=== PATIENT | female | born 1990 | race Caucasian/White ===

== ENCOUNTER → 2017-01-18 23:26 | Observation (INO) ==
--- NOTE | 2017-01-18 23:18 | OB/GYN Progress Note ---
Date of Encounter: 01/18/17 Time of Encounter: 23:16 - Assessment and Plan (1) 26 weeks gestation of Current Visit: Yes Status: Acute (2) Decreased movement Current Visit: Yes Status: Acute Pt now feels active movement, movement felt by CNM on palpation. No trauma noted to abdomen, no redness or bruising. tracing appropriate for gestational age. Discharged to home with instruction on when to return for evaluation. Pt and mother verbalize understanding Qualifiers: Fetus number: single or unspecified fetus Trimester: second trimester Qualified Code(s): O36.8120 - Decreased movements, second trimester, not applicable or unspecified Subjective - Subjective Interval history: 26+0 Pt states while at work was taping an box and the tape dispenser slipped and she hit herself in the abdomen with tape dispenser at 1800. Pt states she initally did not feel baby move, but currently feels a lot of movement, denies cramping, contractions, vaginal bleeding or leaking of fluid. Antepartum ROS: movement normal, no loss of fluid, no vaginal bleeding, no contractions Objective - Vital Signs Vital Signs: Intake and Output 01/18/17 01/18/17 01/18/17 07:59 15:59 23:59 Other: Weight 65.8 kg Patient Weight 01/18/17 23:59 Weight 65.8 kg - Exam FHR: auscultation normal FHR comments: Appropriate for gestational age. baseline 145 Abdomen: Present: normal appearance, soft, gravid Uterus: Present: normal
== END | disposition home or self-care (01) ==
LOC: 1NENULAB
PROVIDERS: ADMIT Advanced Practice Midwife; ATTEND Advanced Practice Midwife

== ENCOUNTER → 2017-04-08 20:45 | Observation (INO) ==
[2017-04-08 18:51] LABS: Amphetamine Screen,Urine Negative ng/mL (Cutoff=1000); Barbiturate Screen,Urine Negative ng/mL (Cutoff=200); Benzodiazepines Screen,Urine Negative ng/mL (Cutoff=200); Cannabinoid Screen,Urine Negative ng/mL (Cutoff = 50); Cocaine Screen,Urine Negative ng/mL (Cutoff= 300); Opiate Screen,Urine Negative ng/mL (Cutoff=300); Phencyclidine Screen,Urine Negative ng/mL (Cutoff=25)
[2017-04-08 19:59] LABS: Bilirubin,Urine Negative (Negative); Blood,Urine Negative (Negative); Clarity,Urine Cloudy (Clear); Color,Urine Yellow (Yellow); Glucose,Urine (UA) Normal (Normal); Ketones,Urine Negative (Negative); Leukocyte Esterase,Urine Negative (Negative); Nitrite,Urine Negative (Negative); Protein,Urine Negative (Neg-Trace); Specific Gravity,Urine > 1.030 (1.010-1.025); Urobilinogen,Urine Normal (Normal)
[2017-04-08 20:03] LABS: Hyaline Casts,Urine None Seen per lpf (None-Few); RBC,Urine 0-3 per hpf (0-3); Squamous Epithelial Cell,Urine Many per lpf (None-Few); WBC,Urine 0-3 per hpf (0-3)
[2017-04-08 20:12] LABS: Bacteria,Urine Few per hpf (None-Few); Mucus,Urine Few (Few)
--- NOTE | 2017-04-08 20:20 | OB/GYN Progress Note ---
Date of Encounter: 04/08/17 Time of Encounter: 20:19 - Assessment and Plan (1) 38 weeks gestation of Current Visit: Yes Status: Acute 26 y/o @ 38 weeks presented as a labor eval, cervix checked x 2 and 1cm, FHT CAT 1, ok for discharge Objective - Vital Signs Vital Signs: Intake and Output 04/08/17 04/08/17 04/08/17 07:59 15:59 23:59 Other: Weight 68.7 kg Patient Weight 04/08/17 23:59 Weight 68.7 kg - Labs Labs: Abnormal lab results Urine Clarity Cloudy (Clear) A 04/08/17 19:40 Ur Specific [place] > 1.030 (1.010-1.025) H 04/08/17 19:40 Ur Squamous Epith Cells Many per lpf (None-Few) H 04/08/17 19:40
== END | disposition home or self-care (01) ==
LOC: 1NENULAB
PROVIDERS: ADMIT Student in an Organized Health Care Education/Training Program; ATTEND Student in an Organized Health Care Education/Training Program

== ENCOUNTER 2017-04-27 22:31 | Inpatient (IN) ==
[2017-04-27 22:13] LABS: Basophils # 0.1 K/mcL (0.0-0.2); Basophils % 0.4 %; Eosinophils # 0.2 K/mcL (0.0-0.6); Eosinophils % 1.1 %; Hematocrit 33.3 % (35.3-44.9); Hemoglobin 10.8 g/dL (11.5-15.4); Immature Granulocytes % 0.5 % (0-4); Lymphocytes # 2.7 K/mcL (0.6-4.6); Lymphocytes % 20.6 %; Mean Corpuscular HGB Conc 32.4 g/dL (31.6-35.5); Mean Platelet Volume 11.4 fL (9.4-12.4); Monocytes % 7.7 %; Neutrophils # 9.2 K/mcL (1.6-8.9); Platelet Count 251 K/mcL (140-400); Red Blood Count 4.16 M/mcL (3.82-4.97); Red Cell Distribution Width 14.2 % (11.5-14.5); Segmented Neutrophils % 69.7 %
[2017-04-27 22:23] LABS: Amphetamine Screen,Urine Negative ng/mL (Cutoff=1000); Barbiturate Screen,Urine Negative ng/mL (Cutoff=200); Benzodiazepines Screen,Urine Negative ng/mL (Cutoff=200); Cannabinoid Screen,Urine Negative ng/mL (Cutoff = 50); Cocaine Screen,Urine Negative ng/mL (Cutoff= 300); Opiate Screen,Urine Negative ng/mL (Cutoff=300); Phencyclidine Screen,Urine Negative ng/mL (Cutoff=25)
[~2017-04-27 22:31] MED LIST: Famotidine 20 MG/2 ML VIAL IVP PRN; Metoclopramide 10 MG/2 ML VIAL IVP PRN; Naloxone 0.4 MG/ML INJ IVP PRN; Ondansetron 4 MG/2 ML VIAL IVP PRN; Ringers Solution, Lactated 1,000 ML IVC SCH
--- NOTE | 2017-04-27 22:42 | OB/GYN History & Physical ---
Date of Encounter: 04/27/17 Time of Encounter: 22:20 Assessment and Plan (1) 40 weeks gestation of Current visit: Yes Status: Acute (2) Uterine contractions Current visit: Yes Status: Acute Patient will be admitted to labor and delivery. - IV fluids. - Nubain PRN for pain. - Clear liquid diet - Epidural as desired Expectant management at this time. Anticipate History of Present Illness Chief complaint: Labor evaluation HPI: Ms. Carr is a 26 year old female at 40 5/7 weeks gestation that presents for labor evaluation. Patient admits that she has been having contractions that are 2-4 minutes apart since 5 pm earlier today. She admits to good movement. She denies any vaginal fluid leakage, but admits to some minor vaginal bleeding (spotting) earlier today. She denies any headaches, vision changes, nausea, vomiting, chest pain, fever, chills, dysuria, or diarrhea. GBS: negative HepBSAg: non-reactive (10/13/16) HIV Ag/Ab: non-reactive Rubella Ab: positive Varicella Ab: positive Blood Type: O- Past Med Surg Social Fam HX - Past Medical History Medical history: asthma Psychiatric history: no psych history - Past Surgical History Surgical History: no surgical history - Social History Smoking Status: Never smoker Smokeless Tobacco Status: No Alcohol use: none Drug use: none - Family History Mother Living Status: Still Living Hx Family Cardiac Disorders: No Hx Family Respiratory Disorders: No Hx Family Cancer: No Hx Family GI Disorders: No Hx Family Endocrine Disorder: No Hx Family Neuromuscular Disorders: No Hx Family Neurologic Disorders: No Hx Family HEENT Disorders: No Hx Family Autoimmune Disorders: Yes (chrohns) Obstetrical History - Pregnancies : 1 Para: 0 Term: 0 : 0 Ab's: 0 Livin Medications and Allergies Vit No.124/Iron/FA [ Vitamin Tablet] 1 each PO DAILY #90 tablet 09/04/16 [Rx] Albuterol Sulfate [Albuterol Inhaler] 2 puff IH Q4HR PRN #1 hfa.aer.ad 12/11/16 [Rx] 3 Allergy/AdvReac Type Severity Reaction Status Date / Time No Known Allergies Allergy Verified 04/27/17 21:56 Exam - Vital Signs Vital signs: BP: 113/74 HR: 85 FHR: 147 [place]: 39 - Constitutional Constitutional: well developed, well nourished, no acute distress, average body habitus - Neck Neck exam: full ROM - Lungs Respiratory exam: CTAB - Cardiovascular Cardiovascular exam: RRR, +S1, +S2 - Abdomen Abdomen: Present: bowel sounds normal, gravid Abdomen detail: right lower quadrant: tenderness (Minor tenderness with palpation), left upper quadrant: tenderness - Extremities Extremities exam: full ROM, normal capillary refill, normal inspection, radial pulses palpable and symmetrical Deep Tendon Reflex Grade: 2+ Normal - Vagina Vagina: Present: normal moisture - Cervix Dilation: 3 Effacement: 80 Station: 0 - Uterus Uterus exam: Present: normal size, normal contour - Anus/Rectum Anus/Rectum: Present: normal perianal skin Results Result Diagrams: 04/27/17 22:04 Abnormal lab results WBC 13.2 K/mcL (4.3-11.1) H 04/27/17 22:04 Hgb 10.8 g/dL (11.5-15.4) L 04/27/17 22:04 Hct 33.3 % (35.3-44.9) L 04/27/17 22:04 MCV 80.0 fL (83.0-100.0) L 04/27/17 22:04 MCH 26.0 pg (28.0-33.3) L 04/27/17 22:04 Neutrophils # 9.2 K/mcL (1.6-8.9) H 04/27/17 22:04 All other labs normal. - VTE Reasons for not Prescribing Prophylaxis: Treatment not Indicated - Low risk for VTE
[2017-04-27] MEDS: *HR* Nalbuphine 20 MG/ML AMPUL IVP PRN (22:57)
--- NOTE | 2017-04-28 00:27 | OB Labor Progress Note ---
Date of Encounter: 04/28/17 Time of Encounter: 00:25 Labor Progress Note - Subjective Subjective: Pt states nubain has helped resting comfortably. - Vital Signs Vital Signs: VSS - Heart Tones Heart Tones: 120/moderate/+accels/-decels - [place]: 3-6 - Plan Plan: Continue expectant management. Epidural as desires GBS negative. Antiicpate
[2017-04-28] MEDS: *HR* Nalbuphine 20 MG/ML AMPUL IVP PRN (04:28)
[2017-04-28] MEDS ORDERED: Oxytocin 20 units/ LR 1000 mL 20 UNIT/1,000 ML BAG IVC SCH (07:15)
[2017-04-28] MEDS ORDERED: Epidural Premix (fent/bupiv) 110 ML EP ONE ×3 (09:28→19:43)
--- NOTE | 2017-04-28 10:04 | Anesthesia Evaluation PreOp ---
Date of Encounter: 04/28/17 Time of Encounter: 10:03 - Past History Planned Operation: ANNE Cardiac History: Denies any Significant Hx Pulmonary History: Asthma FUR NAILER History: Denies Any Significant HX Other Medical History: Denies Any Significant HX Anesthesia History: No Prior Anesthetic Complications Alcohol Use: none Drug use: none Medications and Allergies Vit No.124/Iron/FA [ Vitamin Tablet] 1 each PO DAILY #90 tablet 09/04/16 [Rx] Albuterol Sulfate [Albuterol Inhaler] 2 puff IH Q4HR PRN #1 hfa.aer.ad 12/11/16 [Rx] 3 Allergy/AdvReac Type Severity Reaction Status Date / Time No Known Allergies Allergy Verified 04/27/17 21:56 - Meds/Allergy Pre-op Review Medications Reviewed: Yes Allergies Reviewed: Yes Beta Blockers on Current Med List: No Anesthesia Results - Labs 04/27/17 22:04 Anesthesia Exam Height: 1.6m Weight: 68.5kg NPO (# of Hours): 6 Pain Scale: 8 Pain Scale Used: Numeric (1 - 10) - HEENT Pupil (Motor): Pupils equal Mallampati: II Teeth: Normal Oral Opening: Greater than 3 - FUR NAILER LOC: Oriented FUR NAILER Motor: Normal RUE, Normal LUE, Normal RLE, Normal LLE, Normal Face FUR NAILER Sensory: Normal: RUE, LUE, RLE, LLE, Face - Cardiac Rhythm: Regular Murmur: None JVD: No Carotid Bruit: No - Pulmonary Breath Sounds: bilateral Clear Respiratory Effort: Symmetrical Anesthesia Assess/Plan ASA Score: 2 Modified Jl Scale for Level of Consciousness: Cooperative, oriented, and tranquil Anesthetic Plan: General (plan b), Regional (plan a) Autologous Blood: Yes Monitoring Plan: Standard Monitors
--- NOTE | 2017-04-28 10:06 | Anesthesia Procedures ---
Date of Encounter: 04/28/17 Time of Encounter: 10:04 Procedures: Anesthesia - Epidural/Spinal Patient ID/Chart reviewed: Yes Patient examined: Yes OB Eval: Gestational age: 40.5 OB Eval: : 1 OB Eval: Hx Para: 0 OB Eval: Dilated at (cm): 4 OB Eval: Contractions: Non-stressed pattern Consent Obtained: Yes Supplemental Oxygen: None/Room Air Site Prep: Aseptic Technique, Sterile prep and drape, Povidone-Iodine 1% Patient position: upright Local Anesthetic: Lidocaine 1% Amount of Local Anesthetic used: 3 Touhy Needle Gauge: 18 Touhy Needle Depth (cm): 6 Catheter Depth at Skin (cm): 19 Test Dose (1.5% Lido + Epi): Volume given (mls): 5 Test Dose Result: Negative Loading Dose: Other: 10mls of epidural pharm bag premix solution Loading Dose Administered: Thru Catheter Infusion Med: 0.125% Bupivacaine w/ 2 mcg/ml Fentanyl Infusion Rate (mls/hr): 12 ([id number]) Catheter Secured in Place: Tegaderm, Tape Interspace Used: L3-L4 Loss of Resistance (BARTOLO): Yes Blood: No CSF: No Paresthesia: No Procedure: pt tolerated procedure well. no complications. vss. fhr stable. 112/57 hr 84 116/58 hr 85 fhr 134
--- NOTE | 2017-04-28 11:54 | OB Labor Progress Note ---
Date of Encounter: 04/28/17 Time of Encounter: 11:52 Labor Progress Note - Subjective Subjective: Patient continues to be comfortable after her epidural - Cervix Cervix: 6/95/-2 vertex - Heart Tones Heart Tones: 148, category 1, early decels with contractions - [place]: q 1.5-2 minutes - Interventions Interventions: AROM with clear fluid. Scalp stim with exam noted - Plan Plan: Continue pitocin augmentation
[2017-04-28] MEDS ORDERED: Acetaminophen 325 MG TABLET PO PRN (21:03)
[2017-04-28] MEDS ORDERED: CeFAZolin Premix DUPLEX 2,000 MG/50 ML BAG IVPB SCH (21:30)
[2017-04-29] MEDS ORDERED: *HR* Oxytocin 10 UNIT/ML VIAL IM ONE (00:08)
[2017-04-29] MEDS ORDERED: Chloroprocaine/PF 20 ML VIAL INFILT ONE (00:08)
--- NOTE | 2017-04-29 00:10 | OB Labor Progress Note ---
Date of Encounter: 04/28/17 Time of Encounter: 23:55 Labor Progress Note - Subjective Subjective: Patient comfortable and denies complaints - Cervix Cervix: c/c/+1 - Heart Tones Heart Tones: baseline 180, category II - [place]: q 2-3 minutes - Plan Plan: Spoke with patient and family at bedside. Category II FHR tracing and having decels with pushing remote from delivery recommendation to proceed with primary section due to these indications. Patient in agreement. Informed consent obtained.
[2017-04-29] MEDS ORDERED: Ringers Solution, Lactated 1,000 ML ONE (00:38)
[2017-04-29] MEDS ORDERED: Ondansetron 4 MG/2 ML VIAL ONE ×2 (00:38→01:12)
[2017-04-29] MEDS ORDERED: EPHEDrine 50 MG/ML VIAL ONE (00:39)
[2017-04-29] MEDS ORDERED: *HR* Morphine Sulfate/PF 5 MG/10 ML AMPUL ONE (00:40)
[2017-04-29] MEDS ORDERED: *HR* HYDROmorphone (PF) 1 MG/ML SYRINGE IVP PRN ×3 (00:46→07:20)
--- NOTE | 2017-04-29 01:13 | OB/GYN Procedure Note ---
Section - Date of procedure: 04/29/17 Preop diagnosis: category 2 FHT tracing Post-op diagnosis: same Procedure: section, primary low transverse Surgeon: Zenobia Enriquez Estimated blood loss (cc): 500 Gravity Prospector: Praveen Banks Anesthesia Type: Epidural section complications: none Disposition: L&D Recovery Room Specimens: Placenta, Cord blood, Cord gasses - Infant (s) Infant A Infant Delivery Date: 04/29/17 Infant Delivery Time: 00:27 Presentation: vertex Gender: Female Viability: Viable Pounds: 8 Ounces: 4 Gram Weight: 3.74 kg at 1 minute: 9 at 5 minutes: 9 Specimens collected: cord blood, venous cord gases, arterial cord gases Placenta: spontaneous Cord: 3 umbilical vessels - Narrative Narrative: Patient was taken to the operative suite and placed under spinal anesthetic. She was then prepped and draped in normal sterile fashion in the dorsal supine position. Timeout was then performed. Antibiotics were given at room time. SCDs are on and active. Pfannenstiel skin incision is then made and carried through to underlying layer of fascia with the Bovie. The fascia was then incised in the midline and incision extended laterally with the Almodovar scissors. The fascia was tented up and dissected off the rectus muscles sharply. The rectus muscles were in the midline and the peritoneum was tented up and entered sharply with the Metzenbaum scissors. The peritoneal incision was then extended bluntly. The bladder blade was then inserted. A low transverse uterine incision was then made. The vertex was brought to the incision and the infant was delivered using fundal pressure. There was no nuchal cord. Cord was clamped and cut. was handed to waiting nursery staff. Placenta delivered spontaneously complete and intact with a three-vessel cord. The uterus was cleared of all clots and debris using moist laparotomy sponge. The uterine incision was then closed using 0 Vicryl in a running locked fashion. A second layer of the same suture was used to obtain excellent hemostasis. The abdomen was then cleared of all clots and debris using copious irrigation. Hematuria was noted in the salamanca catheter. The bladder was retrograde filled with sterile water and methylene blue, 250 ml was instilled with no spillage in the abdomen. The bladder was then drained. A piece of Intercede was then placed over the uterine incision and the anterior uterine serosa. The fascial incision was then closed using 0 Vicryl in a running fashion. The skin was closed using 4-0 Vicryl in a subcuticular fashion. Steri- Strips and sterile dressing are then placed. Mother and taken to recovery in stable condition.
[2017-04-29] MEDS ORDERED: *HR* Morphine 2 MG/ML SYRINGE IVP PRN ×2 (01:24→07:20)
--- NOTE | 2017-04-29 07:17 | Anesthesia Evaluation Post Op ---
Date of Encounter: 04/29/17 Time of Encounter: 07:14 - Vital Signs Vital Signs: vss - Lungs Lungs: Clear Ascult./Percussion - Airway Airway: Non-obstructed - Mental Status Mental Status: Alert & Oriented, Answers Appropriately - Pain Pain Scale used: Uziel (Faces) - Nausea Vomiting Nausea Vomiting: Not Present - Hydration Hydration: Ice chips (just starting clears.)
[2017-04-29] MEDS ORDERED: Simethicone 80 MG TAB.CHEW PO PRN (07:20)
[2017-04-29] MEDS ORDERED: Acetaminophen 325 MG TABLET PO PRN (07:20)
[2017-04-29] MEDS ORDERED: Metoclopramide 10 MG/2 ML VIAL IVP PRN (07:20)
[2017-04-29] MEDS ORDERED: Rho Immune Globulin 1,500 UNIT SYRINGE IM ONE (07:20)
[2017-04-29] MEDS ORDERED: Ondansetron 4 MG/2 ML VIAL IVP PRN (07:20)
[2017-04-29] MEDS ORDERED: Oxytocin 20 units/ LR 1000 mL 20 UNIT/1,000 ML BAG IVC SCH (07:20)
[2017-04-29] MEDS: Ibuprofen 600 MG TABLET PO PRN ×2 (10:42→17:02)
[2017-04-29] MEDS: metroNIDAZOLE 500 MG TABLET PO SCH ×2 (12:46→19:56)
[2017-04-29] MEDS: cephALEXin 500 MG CAPSULE PO SCH ×3 (12:46→19:55)
[2017-04-29] MEDS: Prenatal Vit/FA 1 EACH TABLET PO SCH (12:46)
[2017-04-29] MEDS: *HR* OxyCODONE/APAP 5/325 TABLET PO PRN (23:25)
--- NOTE | 2017-04-30 07:21 | OB/GYN Progress Note ---
Date of Encounter: 04/30/17 Time of Encounter: 07:05 - Assessment and Plan (1) 40 weeks gestation of Current Visit: Yes Status: Acute (2) delivery delivered Current Visit: Yes Status: Acute Patient's pain is well-controlled. Vaginal bleeding is minimal per nurse. Hgb stable at 10.8. - Continue current pain meds. - Continue iron supplement. - Continue keflex. - Continue PN vitamins. (3) Constipation Current Visit: Yes Status: Acute Has not been able to to have a BM or pass gas yet. Normoactive bowel sounds x 4 on exam. - Continue Senna. Qualifiers: Constipation type: unspecified constipation type Qualified Code(s): K59.00 - Constipation, unspecified Subjective - Subjective Principal diagnosis: S/P Interval history: Patient says that she is doing well. She is currently breast feeding her baby and the baby is doing well. She says her abdominal pain level is at a 1-2/10. She is unsure about the status of her vaginal bleeding. She has not had a bowel movement or able to pas gas yet. She denies any fever, chills, nausea, vomiting , headaches, vision changes, chest pain, or shortness of breath. Patient reports: appetite normal, voiding normally, pain well controlled, ambulating normally : doing well, nursing well Objective - Vital Signs Latest vital signs: Vital Signs Temp Pulse Resp BP Pulse Ox 04/29/17 23:00 98.2 F 110 16 102/67 97 04/29/17 19:45 99.1 F 108 14 92/60 98 04/29/17 16:00 98.4 F 105 16 93/60 98 04/29/17 14:07 98.4 F 99 18 99/64 99 04/29/17 11:30 100.2 F H 111 16 100/62 99 04/29/17 07:30 99.0 F 92 16 97/63 Intake and Output 04/29/17 04/29/17 04/30/17 15:59 23:59 07:59 Intake Total 740 / 740 1420 / 1420 Output Total 750 / 750 450 / 450 500 / 500 Balance -10 / -10 970 / 970 -500 / -500 Intake: IV Fluids 1000 / 1000 Pitocin 20 unit In 1,000 ml @ 1000 / 1000 125 mls/hr IVC .Q8H [facility] Rx#: [id number] Oral 740 / 740 420 / 420 Output: Urine 250 / 250 500 / 500 Catheter 750 / 750 200 / 200 Other: Meal Breakfast Dinner Percent of Meal Consumed 50% 50% - Exam Lungs: bilateral: normal Chest: Normal S1, Normal S2 Extremities: Present: normal. Absent: tenderness, edema Abdomen: Present: normal appearance, soft, tenderness (Diffuse tenderness) Incision: Present: normal, dry, dressed Uterus: Present: normal, firm Comments: Neuro: +2 DTRs in upper and lower extremities bilaterally. - Labs Labs: Laboratory Results - last 24 hr 04/29/17 01:58 Screen NEGATIVE Baby's Blood Type O RH POSITIVE Mother's Blood Type O RH NEGATIVE Rhogam Indicated YES Rhogam Req for Mother 1
[2017-04-30] MEDS: cephALEXin 500 MG CAPSULE PO SCH ×3 (09:01→20:44)
[2017-04-30] MEDS: Ibuprofen 600 MG TABLET PO PRN (09:02)
[2017-04-30] MEDS: metroNIDAZOLE 500 MG TABLET PO SCH ×2 (09:02→20:44)
[2017-04-30] MEDS: Prenatal Vit/FA 1 EACH TABLET PO SCH (09:03)
[2017-04-30] MEDS: *HR* OxyCODONE/APAP 5/325 TABLET PO PRN (15:49)
[2017-05-01] MEDS: *HR* OxyCODONE/APAP 5/325 TABLET PO PRN ×4 (02:11→23:19)
--- NOTE | 2017-05-01 08:04 | Discharge Summary ---
Date of Encounter: 05/01/17 Time of Encounter: 07:20 - Discharge Diagnosis (1) 40 weeks gestation of Priority: Primary Status: Resolved (2) delivery delivered Priority: Primary Status: Resolved (3) Constipation Priority: Primary Status: Acute Qualifiers: Constipation type: unspecified constipation type Qualified Code(s): K59.00 - Constipation, unspecified - Discharge Medications Prescriptions: Ibuprofen [Motrin] 600 mg PO Q6HR PRN #60 tablet PRN Reason: Cramping OxyCODONE/APAP 5/325 [Percocet 5/325 MG] 1 each PO Q6HR PRN #20 tablet PRN Reason: Moderate pain 4-6 cephALEXin [Keflex] 500 mg PO TID #15 capsule Docusate [Colace] 100 mg PO BID #30 capsule metroNIDAZOLE [Flagyl] 500 mg PO BID #10 tablet Home Medications: Vit No.124/Iron/FA [ Vitamin Tablet] 1 each PO DAILY #90 tablet 09/04/16 [Rx] Albuterol Sulfate [Albuterol Inhaler] 2 puff IH Q4HR PRN #1 hfa.aer.ad 12/11/16 [Rx] Docusate [Colace] 100 mg PO BID #30 capsule 05/01/17 [Rx] Ibuprofen [Motrin] 600 mg PO Q6HR PRN #60 tablet 05/01/17 [Rx] OxyCODONE/APAP 5/325 [Percocet 5/325 MG] 1 each PO Q6HR PRN #20 tablet 05/01/17 [Rx] cephALEXin [Keflex] 500 mg PO TID #15 capsule 05/01/17 [Rx] metroNIDAZOLE [Flagyl] 500 mg PO BID #10 tablet 05/01/17 [Rx] Allergies/Adverse Reactions: 3 Allergy/AdvReac Type Severity Reaction Status Date / Time No Known Allergies Allergy Verified 04/27/17 21:56 Data Procedures and tests throughout hospitalization: Laboratory Tests 04/27/17 04/27/17 04/29/17 22:04 22:04 01:58 WBC 13.2 H RBC 4.16 Hgb 10.8 L Hct 33.3 L MCV 80.0 L MCH 26.0 L MCHC 32.4 RDW 14.2 Plt Count 251 MPV 11.4 Immature Gran % 0.5 Seg Neutrophils % 69.7 Lymphocytes % 20.6 Monocytes % 7.7 Eosinophils % 1.1 Basophils % 0.4 Neutrophils # 9.2 H Lymphocytes # 2.7 Monocytes # 1.0 Eosinophils # 0.2 Basophils # 0.1 Urine Opiates Screen Negative Ur Barbiturates Screen Negative Ur Phencyclidine Scrn Negative Ur Amphetamines Screen Negative U Benzodiazepines Scrn Negative Urine Cocaine Screen Negative U Marijuana (THC) Screen Negative Screen NEGATIVE Baby's Blood Type O RH POSITIVE Mother's Blood Type O RH NEGATIVE Rhogam Indicated YES Rhogam Req for Mother 1 Date of admission: 04/27/17 22:33 Primary care physician: PCP NONE Discharging clinician: Ok Jack Anticipated date of discharge: 05/01/17 - Patient Status Disposition: Home, Self-Care Condition: Good Functional capacity at discharge: independent ambulation Overall status at discharge: patient is progressing back to baseline - Discharge Instructions - Diet and Activity Activity: resume usual activities as tolerated Diet: regular diet Hospital Course Reason for admission: IUP at term Delivery: section Episiotomy: none Laceration: none Other procedures: none complications: none Discharge diagnosis: IUP at term delivered [place] baby: female Hospital course: Ms. Carr is a 26 year old female that presented at 40 5/7 weeks gestation for labor evaluation. Patient admitted that she had been having contractions that were 2-4 minutes apart since 5 pm earlier today. She admitted to good movement. She denied any vaginal fluid leakage, but admitted to some minor vaginal bleeding (spotting) earlier. Patient was taken to the operative suite and placed under spinal anesthetic. She was then prepped and draped in normal sterile fashion in the dorsal supine position. Timeout was then performed. Antibiotics were given at room time. SCDs are on and active. Pfannenstiel skin incision is then made and carried through to underlying layer of fascia with the Bovie. The fascia was then incised in the midline and incision extended laterally with the Almodovar scissors. The fascia was tented up and dissected off the rectus muscles sharply. The rectus muscles were in the midline and the peritoneum was tented up and entered sharply with the Metzenbaum scissors. The peritoneal incision was then extended bluntly. The bladder blade was then inserted. A low transverse uterine incision was then made. The infant vertex was brought to the incision and the was delivered using fundal pressure. There was no nuchal cord. Cord was clamped and cut. Infant was handed to waiting nursery staff. Placenta delivered spontaneously complete and intact with a three-vessel cord. The uterus was cleared of all clots and debris using moist laparotomy sponge. The uterine incision was then closed using 0 Vicryl in a running locked fashion. A second layer of the same suture was used to obtain excellent hemostasis. The abdomen was then cleared of all clots and debris using copious irrigation. Hematuria was noted in the salamanca catheter. The bladder was retrograde filled with sterile water and methylene blue, 250 ml was instilled with no spillage in the abdomen. The bladder was then drained. A piece of Intercede was then placed over the uterine incision and the anterior uterine serosa. The fascial incision was then closed using 0 Vicryl in a running fashion. The skin was closed using 4-0 Vicryl in a subcuticular fashion. Steri- Strips and sterile dressing are then placed. When seen today, patient says that she is in good mood. She has been breast and bottle feeding her baby. She says her baby has been doing OK, but is concerned about the weight loss of the . 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 She has not had a bowel movement or passed gas yet today. She admits that her appetite has been poor and she has been nauseous. She has been able to void and ambulate. Her vaginal bleeding has been light. She rates her intermitted abdominal cramps as a 2-3/10 on the pain scale. She denies any headaches, fever, chills, chest pain, or shortness of breath. Patient will be given senna for her constipation and will be discharged once she has been able to pass gas. She will continue her course of flagyl and keflex for 5 more days for a total of 7 days of antibiotic prophylactic treatment. She has a follow- up appointment with Dr. Enriquez on 05/15/17. Section - Date of procedure: 04/29/17 Preop diagnosis: category 2 FHT tracing Post-op diagnosis: same Procedure: section, primary low transverse Surgeon: Zenobia Enriquez Estimated blood loss (cc): 500 Group Account Director: Praveen Banks Anesthesia Type: Epidural section complications: none Disposition: L&D Recovery Room Specimens: Placenta, Cord blood, Cord gasses - (s) Infant A Infant Delivery Date: 04/29/17 Infant Delivery Time: 00:27 Presentation: vertex Gender: Female Viability: Viable Pounds: 8 Ounces: 4 Gram Weight: 3.74 kg at 1 minute: 9 at 5 minutes: 9 Specimens collected: cord blood, venous cord gases, arterial cord gases Placenta: spontaneous Cord: 3 umbilical vessels Time Attestation: Total time spent providing and/or coordinating discharge services: Time Spent: Less than 30 minutes - VTE Reasons for not Prescribing Prophylaxis: Treatment not Indicated - Low risk for VTE Documentation of Mechanical Device: Intermittent pneumatic compression device - Attending Attestation I examined this patient and my medical decision-making was reviewed with the Resident Physician. I agree with the documented findings, disposition and treatment plan as described. Sarah Jeffery CNM Exam - Constitutional Vitals: Temp Pulse Resp BP Pulse Ox 98.2 F 103 14 108/66 99 04/30/17 20:45 04/30/17 20:45 04/30/17 20:45 04/30/17 20:45 04/30/17 20:45 General appearance IM: A&O X 3, pleasant, no acute distress, answers questions appropriately - Respiratory Respiratory exam: Present: CTAB - Cardiovascular Cardiovascular exam IM: Present: RRR, +S1, +S2 - GI/Abdominal GI/Abdominal exam IM: normal bowel sounds (Normoactive bowel sounds x 4 quadrants. ), soft, tenderness Incision: dry, dressed - Uterine Tone: Firm - Extremities Exam Extremities exam IM: Present: full ROM, normal capillary refill, normal inspection, radial pulses palpable and symmetrical. Absent: pedal edema Additional comments: Pedal pulses intact and symmetrical bilaterally. - Neurological Exam Neurological exam: reflexes normal
[2017-05-01] MEDS: Sennosides 8.6 MG TABLET PO PRN (09:04)
[2017-05-01] MEDS: cephALEXin 500 MG CAPSULE PO SCH ×3 (09:04→20:17)
[2017-05-01] MEDS: Prenatal Vit/FA 1 EACH TABLET PO SCH (09:04)
[2017-05-01] MEDS: metroNIDAZOLE 500 MG TABLET PO SCH ×2 (09:04→20:17)
[2017-05-01] MEDS ORDERED: Ondansetron ODT 4 MG TAB.RAPDIS SL ONE (14:42)
[2017-05-01] MEDS: Ibuprofen 600 MG TABLET PO PRN (20:17)
[2017-05-01] MEDS ORDERED: Metoclopramide 10 MG/2 ML VIAL IVP ONE (21:47)
--- NOTE | 2017-05-01 21:52 | Event Note ---
Date of Encounter: 05/01/17 Time of Encounter: 21:48 Patient re-evaluated due to c/o no passing of flatus today and declining discharge. Bowel sounds hypoactive, abdomen soft, tender with palpation, incision C/D/I steri-strips present. Patient c/o nausea after eating. States is able to drink without difficulty. Denies passing flatus today. Discussed POC with Dr Cam. Reglan po, clear liquids only, encouraged ambulation in [place] and self-care. ( Patient received a bed bath today) Will D/C discharge tonight and re-evaluate for discharge in AM.
[2017-05-02] MEDS: Ibuprofen 600 MG TABLET PO PRN ×2 (05:04→12:02)
[2017-05-02] MEDS ORDERED: MOM Conc 10 ML UD.LIQ PO ONE (06:47)
[2017-05-02] MEDS: Sennosides 8.6 MG TABLET PO PRN (06:59)
[2017-05-02 08:08] VITALS: BP 100/65
[2017-05-02] MEDS: Prenatal Vit/FA 1 EACH TABLET PO SCH (09:00)
[2017-05-02] MEDS: metroNIDAZOLE 500 MG TABLET PO SCH (09:00)
[2017-05-02] MEDS: cephALEXin 500 MG CAPSULE PO SCH (09:00)
--- NOTE | 2017-05-02 09:08 | OB/GYN Progress Note ---
Date of Encounter: 05/02/17 Time of Encounter: 07:15 - Assessment and Plan (1) 40 weeks gestation of Current Visit: Yes Status: Resolved (2) delivery delivered Current Visit: Yes Status: Resolved Patient's pain is well-controlled. Vaginal bleeding has slightly increased per patient. - Continue current pain meds. - Continue iron supplement. - Continue keflex. Day#4 - Conitnue metronidazole Day #4 - Continue PN vitamins. Ambulation q 2 hours for 15 minutes will discharge when passing flatus (3) Constipation Current Visit: Yes Status: Acute Has not been able to to have a BM or pass gas yet. Hypoactive bowel sounds x 4 on exam. - Milk of magnesia. - Ambulation. Qualifiers: Constipation type: unspecified constipation type Qualified Code(s): K59.00 - Constipation, unspecified Subjective - Subjective Principal diagnosis: S/P Interval history: POD#4. When seen today, patient says that she still has not been able to have a bowel movement or pass gas. She has been able to void. She says her appetite has been poor and she has not been able to eat due to nausea. She denies any vomiting. She also says that her vaginal bleeding has increased a bit more today. She rates her abdominal cramps as a 5-6/10 at it's worst when she is moving. She reports a good mood. Her baby is doing well and she has been breast and bottle feeding. Patient reports: voiding normally, pain well controlled, appetite poor, ambulating normally, nauseated Davis: doing well, nursing well, bottle feeding Objective - Vital Signs Latest vital signs: Vital Signs Temp Pulse Resp BP Pulse Ox 05/02/17 08:00 98 F 68 12 100/65 98 05/01/17 20:30 98.7 F 77 14 104/64 96 Intake and Output 05/01/17 05/02/17 05/02/17 23:59 07:59 15:59 Intake Total 900 / 900 Balance 900 / 900 Intake: Oral 900 / 900 Other: # Voids 2 1 Weight 68.492 kg Patient Weight 05/02/17 23:59 Weight 68.492 kg - Exam Lungs: bilateral: normal Chest: Normal S1, Normal S2 Extremities: Present: normal. Absent: tenderness, edema Abdomen: Present: normal appearance, soft, tenderness (Diffuse tenderness. ) Incision: Present: dry, dressed Uterus: Present: firm Comments: fundus at U
--- NOTE | 2017-05-02 12:11 | Discharge Summary ---
Date of Encounter: 05/02/17 Time of Encounter: 12:08 - Discharge Diagnosis (1) 40 weeks gestation of Priority: Primary Status: Resolved (2) delivery delivered Priority: Primary Status: Resolved Comments: POD#3. Pt states pain is managed on po pain medication, tolerate po diet. Passed flatus today after ambulation. . Will discharge home. (3) Constipation Priority: Secondary Status: Acute Comments: Has now passed flatus will discharge Qualifiers: Constipation type: unspecified constipation type Qualified Code(s): K59.00 - Constipation, unspecified - Discharge Medications Prescriptions: Ibuprofen [Motrin] 600 mg PO Q6HR PRN #60 tablet PRN Reason: Cramping OxyCODONE/APAP 5/325 [Percocet 5/325 MG] 1 each PO Q6HR PRN #20 tablet PRN Reason: Moderate pain 4-6 cephALEXin [Keflex] 500 mg PO TID #15 capsule Docusate [Colace] 100 mg PO BID #30 capsule metroNIDAZOLE [Flagyl] 500 mg PO BID #10 tablet Home Medications: Vit No.124/Iron/FA [ Vitamin Tablet] 1 each PO DAILY #90 tablet 09/04/16 [Rx] Albuterol Sulfate [Albuterol Inhaler] 2 puff IH Q4HR PRN #1 hfa.aer.ad 12/11/16 [Rx] Docusate [Colace] 100 mg PO BID #30 capsule 05/01/17 [Rx] Ibuprofen [Motrin] 600 mg PO Q6HR PRN #60 tablet 05/01/17 [Rx] OxyCODONE/APAP 5/325 [Percocet 5/325 MG] 1 each PO Q6HR PRN #20 tablet 05/01/17 [Rx] cephALEXin [Keflex] 500 mg PO TID #15 capsule 05/01/17 [Rx] metroNIDAZOLE [Flagyl] 500 mg PO BID #10 tablet 05/01/17 [Rx] Allergies/Adverse Reactions: 3 Allergy/AdvReac Type Severity Reaction Status Date / Time No Known Allergies Allergy Verified 04/27/17 21:56 Data Procedures and tests throughout hospitalization: Laboratory Tests 04/27/17 04/27/17 04/29/17 22:04 22:04 01:58 WBC 13.2 H RBC 4.16 Hgb 10.8 L Hct 33.3 L MCV 80.0 L MCH 26.0 L MCHC 32.4 RDW 14.2 Plt Count 251 MPV 11.4 Immature Gran % 0.5 Seg Neutrophils % 69.7 Lymphocytes % 20.6 Monocytes % 7.7 Eosinophils % 1.1 Basophils % 0.4 Neutrophils # 9.2 H Lymphocytes # 2.7 Monocytes # 1.0 Eosinophils # 0.2 Basophils # 0.1 Urine Opiates Screen Negative Ur Barbiturates Screen Negative Ur Phencyclidine Scrn Negative Ur Amphetamines Screen Negative U Benzodiazepines Scrn Negative Urine Cocaine Screen Negative U Marijuana (THC) Screen Negative Screen NEGATIVE Baby's Blood Type O RH POSITIVE Mother's Blood Type O RH NEGATIVE Rhogam Indicated YES Rhogam Req for Mother 1 Date of admission: 04/27/17 22:33 Primary care physician: PCP NONE Discharging clinician: Heidy Vázquez Anticipated date of discharge: 05/02/17 - Patient Status Disposition: Home, Self-Care Condition: Good Functional capacity at discharge: independent ambulation Overall status at discharge: patient is back to baseline - Discharge Instructions Follow Up With: NONE,PCP [Primary Care Provider] - - Diet and Activity Activity: resume usual activities as tolerated Diet: regular diet Hospital Course Reason for admission: active labor, IUP at term Delivery: section Episiotomy: none Laceration: none Other procedures: none complications: none Discharge diagnosis: IUP at term delivered [place] baby: female Hospital course: Section - Date of procedure: 04/29/17 Preop diagnosis: category 2 FHT tracing Post-op diagnosis: same Procedure: section, primary low transverse Surgeon: Zenobia Enriquez Estimated blood loss (cc): 500 Director Banking: Praveen Banks Anesthesia Type: Epidural section complications: none Disposition: L&D Recovery Room Specimens: Placenta, Cord blood, Cord gasses - (s) A Delivery Date: 04/29/17 Delivery Time: 00:27 Presentation: vertex Gender: Female Viability: Viable Pounds: 8 Ounces: 4 Gram Weight: 3.74 kg at 1 minute: 9 at 5 minutes: 9 Specimens collected: cord blood, venous cord gases, arterial cord gases Placenta: spontaneous Cord: 3 umbilical vessels Stable in PP and appropriate for discharge Time Attestation: Total time spent providing and/or coordinating discharge services: - VTE Reasons for not Prescribing Prophylaxis: Treatment not Indicated - Low risk for VTE Documentation of Mechanical Device: Intermittent pneumatic compression device Exam - Constitutional Vitals: Temp Pulse Resp BP Pulse Ox 98 F 68 12 100/65 98 05/02/17 08:00 05/02/17 08:00 05/02/17 08:00 05/02/17 08:00 05/02/17 08:00 General appearance IM: A&O X 3, pleasant, no acute distress, answers questions appropriately - Respiratory Respiratory exam: Present: CTAB - Cardiovascular Cardiovascular exam IM: Present: RRR - GI/Abdominal GI/Abdominal exam IM: hypoactive bowel sounds Incision: normal, dry - Uterine Tone: Firm Uterus Position: At Umbilicus - Neurological Exam Neurological exam: oriented X3, reflexes normal - Psychiatric Additional comments: Reports good mood.
== END 2017-05-02 15:40 | disposition home or self-care (01) | DRG 540 ==
LOC: 1NENULAB → 1NENUOBS 04-29 03:32
PROVIDERS: ADMIT Advanced Practice Midwife; ATTEND Advanced Practice Midwife